=== PATIENT | male | born 1985 | race Hispanic/Latino ===

== ENCOUNTER 2017-12-05 07:52 | Emergency (ER) | payer SELFPAY ==
[2017-12-05] MEDS ORDERED: ORPHENADRINE CITRATE 30 MG/ML ML ONE (08:20)
[2017-12-05] MEDS ORDERED: ACETAMINOPHEN 325 MG TAB ONE (08:20)
[2017-12-05] MEDS ORDERED: KETOROLAC TROMETHAMINE 30MG/ML ONE (09:33)
[2017-12-05] MEDS ORDERED: DIAZEPAM 2 MG TAB ONE (09:34)
== END 2017-12-05 11:07 | disposition home or self-care (01) ==
LOC: EDH 07:52
DX: M62.830 Muscle spasm of back (principal); Z72.0 Tobacco use
CPT/HCPCS: 71046; 93005; 96372 ×2; 99284; J1885; J2360

== ENCOUNTER 2018-11-09 17:08 | Emergency (ER) | payer OTHER ==
[2018-11-09 17:55] LABS: RAPID GROUP A STREP NEGATIVE (NEGATIVE)
== END 2018-11-09 18:06 | disposition home or self-care (01) ==
LOC: EDH 17:08
DX: J06.9 Acute upper respiratory infection, unspecified (principal); Z72.0 Tobacco use
CPT/HCPCS: 71046; 87804; 87880

== ENCOUNTER 2019-09-11 21:02 | Emergency (ER) | payer SELFPAY | END 2019-09-11 21:29 | disposition home or self-care (01) | LOC: EDH 21:02 | DX: R05 Cough (principal) | CPT/HCPCS: 99281 ==